=== PATIENT | male | born 1965 | race Caucasian/White ===

== ENCOUNTER → 2019-05-10 | Outpatient (CLI) | payer BC ==
[2019-05-10 17:01] LABS: BUN/CREATININE RATIO 18; GFR ESTIMATED > 60
== END ==
LOC: LAB 16:19
PROVIDERS: ATTEND Pediatrics
DX: D48.7 Neoplasm of uncertain behavior of other specified sites (principal)
CPT/HCPCS: 36415; 82565; 84520